=== PATIENT | male | born 1960 | race Caucasian/White ===

== ENCOUNTER → 2020-12-20 | Outpatient (CLI) | payer BC | END | disposition home or self-care (01) | LOC: LABWHC1 16:11 | PROVIDERS: ATTEND Internal Medicine | DX: U07.1 COVID-19 (principal); R06.02 Shortness of breath; R42 Dizziness and giddiness | CPT/HCPCS: 87070; 87205; 87075; U0003; C9803; U0005; 87077; 87186 ==

== ENCOUNTER 2022-02-01 10:05 | Day surgery (SDC) | payer BC ==
[2022-01-30 15:22] VITALS: BMI 28.3
[~2022-02-01 10:05] MED LIST: LACTATED RINGERS 1,000 ML IV SCH; LIDOCAINE 1% (10MG/ML) FOR IV START INTRADERMA PRN
[2022-02-01 10:26] VITALS: TEMP 97.9
[2022-02-01 10:39] LABS: Glucose,Whole Blood 147 mg/dL (75-99)
[2022-02-01] MEDS ORDERED: PROPOFOL 10 MG/ML 20 ML VIAL IV ONE (10:54)
[2022-02-01] MEDS ORDERED: MIDAZOLAM 2 MG/2 ML VIAL ONE (10:54)
[2022-02-01] MEDS ORDERED: fentaNYL (PF) 50 MCG/ML 2 ML AMP ONE (10:54)
--- NOTE | 2022-02-01 11:24 | P.PCN ---
Date of Procedure: 02/01/22 Preoperative Diagnosis: Iron deficiency anemia Postoperative Diagnosis: Iron deficiency anemia Procedure(s) Performed: EGD and colonoscopy Anesthesia: MAC Surgeon: Anisa Guido Pathology: none sent Condition: stable Disposition: PACU Indications for Procedure: The patient's is a 61-year-old man who presents for endoscopy due to iron deficiency anemia. Last colonoscopy was 15. He's taken to the endoscopy suite were gastroscope is passed per mouth to the third and fourth portions of the duodenum. Pharynx is unremarkable. The esophagus is without evidence of esophagitis or mass lesion. GE junction is without inflammatory change. The stomach, pylorus and duodenum without evidence of ulcer, mass lesion or other mucosal abnormality. No gastritis appreciated. He is then repositioned in a colonoscope is passed per rectum to the cecum. Had a fairly good prep. There is some liquid material which is easily aspirated. Grossly he had no evidence of polyp, mass lesion, ulcer, stricture, diverticuli or other mucosal abnormality. Small internal hemorrhoids were seen. No evidence of new or old blood in the upper or lower digestive tract. He tolerated the procedure without difficulty and was taken recovery room in satisfactory condition. Follow-up with primary care regarding further workup of his anemia Plan - Discharge Summary Discharge Rx Participant: No New Discharge Prescriptions: No Action Omeprazole [PriLOSEC] 20 mg PO AC-BRKFST Aspirin [Adult Low Dose Aspirin EC] 81 mg PO DAILY lisinopriL 10 mg PO BID buPROPion SR [Wellbutrin SR] 150 mg PO BID Atorvastatin Calcium [Lipitor] 20 mg PO DAILY Semaglutide [Ozempic] 1 mg SQ Q7DAYS Insulin Degludec [Tresiba Flextouch U-200 Pen] 24 units SQ DAILY Dapagliflozin Propanediol [Farxiga] 10 mg PO DAILY Pioglitazone [Actos] 30 mg PO DAILY Ergocalciferol (Vitamin D2) [Drisdol (50,000 Iu)] 1,250 mcg PO QMONTHLY Discharge Medication List Aspirin [Adult Low Dose Aspirin EC] 81 mg PO DAILY 01/31/22 [History] Atorvastatin Calcium [Lipitor] 20 mg PO DAILY 01/31/22 [History] Dapagliflozin Propanediol [Farxiga] 10 mg PO DAILY 01/31/22 [History] Ergocalciferol (Vitamin D2) [Drisdol (50,000 Iu)] 1,250 mcg PO QMONTHLY 01/31/22 [History] Insulin Degludec [Tresiba Flextouch U-200 Pen] 24 units SQ DAILY 01/31/22 [History] Omeprazole [PriLOSEC] 20 mg PO AC-BRKFST 01/31/22 [History] Pioglitazone [Actos] 30 mg PO DAILY 01/31/22 [History] Semaglutide [Ozempic] 1 mg SQ Q7DAYS 01/31/22 [History] buPROPion SR [Wellbutrin SR] 150 mg PO BID 01/31/22 [History] lisinopriL 10 mg PO BID 01/31/22 [History] Follow up Appointment(s)/Referral(s): Anisa Guido DO [Doctor of Osteopathic Medicine] - As Needed Patient Instructions/Handouts: *Sur[facility] - (Anesthesia) Endoscopy Discharge Instructions, Colonoscopy (GEN), Upper Endoscopy (GEN)
[2022-02-01 11:28] VITALS: RESP 16
[2022-02-01 11:38] VITALS: BP 113/71; PULSE 72
== END 2022-02-01 11:59 | disposition home or self-care (01) ==
LOC: ORWHC2ENDO 10:05
PROVIDERS: ATTEND Surgery
DX: D50.9 Iron deficiency anemia, unspecified (principal); K64.8 Other hemorrhoids; Z79.82 Long term (current) use of aspirin; Z79.899 Other long term (current) drug therapy
CPT/HCPCS: 45378; 43235; J2250; J3010; J2704

== ENCOUNTER → 2022-07-29 | Outpatient (CLI) | payer BC ==
[2022-07-29 15:37] LABS: Estimated Average Glucose UNC
== END | disposition home or self-care (01) ==
LOC: LABWHC1 09:47
PROVIDERS: ATTEND Internal Medicine
DX: E11.9 Type 2 diabetes mellitus without complications (principal)
CPT/HCPCS: 36415; 83036

== ENCOUNTER → 2023-02-27 | Outpatient (CLI) | payer BC ==
--- NOTE | 2023-02-27 14:10 | XR ---
EXAM TYPE: LUMBAR SPINE X RAY SERIES COMPARISON: NONE HISTORY: Back pain TECHNIQUE: 4 views are submitted. FINDINGS: Alignment is anatomic. The pedicles are intact. The transverse processes are intact. There is no s pondylolysis or spondylolisthesis. Severe degenerative disc disease with spurring L5-S1 and moderate facet arthropathy. Bilateral foraminal encroachment suspected. Mild diffuse osteopenia. Chronic-appe aring superior endplate deformity or fracture L1. IMPRESSION: 1. Severe degenerative disc disease and facet arthropathy L5-S1 with suspected foraminal encroachment . Recommend MRI. 2. Chronic appearing mild superior endplate compression fracture L1. 3. Diffuse osteopenia
== END | disposition home or self-care (01) ==
LOC: RADXRYALE 13:01
PROVIDERS: ATTEND Internal Medicine
DX: M51.36 Other intervertebral disc degeneration, lumbar region (principal); M47.817 Spondylosis without myelopathy or radiculopathy, lumbosacral region; M48.56XA Collapsed vertebra, not elsewhere classified, lumbar region, initial encounter for fracture; M85.88 Other specified disorders of bone density and structure, other site
CPT/HCPCS: 72110